=== PATIENT | female | born 1960 | race Caucasian/White ===

== ENCOUNTER 2021-01-01 19:27 | Emergency (ER) | payer MEDICARE ==
[2021-01-01 19:42] VITALS: BP 151/80; Wt 53.6 kg
[2021-01-01] MEDS ORDERED: TIROSINT100 MCG PO (19:45)
[2021-01-01] MEDS ORDERED: BUPROPION HCL150 M1 PO (19:45)
[2021-01-01] MEDS ORDERED: HYDROCODONE-AC1 EAC2 (19:45)
== END 2021-01-01 20:03 | disposition home or self-care (01) ==
LOC: D.ER 19:27
DX: H43.391 Other vitreous opacities, right eye (principal)